=== PATIENT | male | born 1995 | race Caucasian/White ===

== ENCOUNTER 2017-06-17 13:14 | Emergency (ER) | payer OTHER ==
--- NOTE | 2017-06-17 14:07 | RAD ---
INDICATION: Right knee injury. TECHNIQUE: 4 views of the right knee were obtained. The exam is limited, the patient was unable to be positioned for the standard images. FINDINGS: The bones are in normal alignment. No joint effusion or fracture is seen. Joint spaces appear maintained. IMPRESSION: SLIGHTLY LIMITED EXAM, NO EVIDENCE FOR FRACTURE. IF THE PATIENT'S SYMPTOMS PERSIST, RECOMMEND FOLLOW-UP IMAGING.
[2017-06-17] MEDS ORDERED: Ibuprofen TAB* 600 MG PO ONE (14:25)
[2017-06-17] MEDS ORDERED: HYDROcodone/ACETAMIN 5-325 MG* 1 TAB PO ONE (14:52)
[2017-06-17 15:26] VITALS: BP 126/71
--- NOTE | 2017-06-20 13:32 | ED ---
Elyse Lopez Edward, scribed for Rick Desai MD on 06/17/17 at 1327 . Lower Extremity - HPI Summary HPI Summary: 21 y/o male presents to the ED c/o sudden onset R knee pain s/p knee injury earlier today. The pt was playing [employer] when he jumped up and landed in a ditch. The pt states his R knee popped and then felt immediate pain. The pain is aggravated with ambulation. Denies other symptoms. - History of Current Complaint Chief Complaint: EDExtremityLower Stated Complaint: RT KNEE PAIN Time Seen by Provider: 06/17/17 13:24 Hx Obtained From: Patient Mechanism Of Injury: Other - jumped and fell in a ditch Onset of Pain: Immediate Onset/Duration: Still Present Location: Is Discrete @ - R knee Associated Signs And Symptoms: Positive: Knee Pain - Allergies/Home Medications Allergies/Adverse Reactions: Allergies Allergy/AdvReac Type Severity Reaction Status Date / Time No Known Allergies Allergy Verified 06/17/17 13:22 PMH/Surg Hx/FS Hx/Imm Hx Previously Healthy: Yes Endocrine/Hematology History: Denies: Hx Diabetes Cardiovascular History: Denies: Hx Myocardial Infarction - Surgical History Surgery Procedure, Year, and Place: N/A Infectious Disease History: No Infectious Disease History: Denies: Traveled Outside the [place] in Last 30 Days - Family History Known Family History: Positive: Hypertension - Social History Occupation: Student Lives: Dormitory/Roommates Alcohol Use: None Hx Substance Use: No Substance Use Type: Reports: None Hx Tobacco Use: No Smoking Status (MU): Never Smoked Tobacco Review of Systems Constitutional: Negative Eyes: Negative ENT: Negative Cardiovascular: Negative Respiratory: Negative Gastrointestinal: Negative Genitourinary: Negative Positive: Arthralgia - R knee pain Skin: Negative Neurological: Negative Psychological: Normal All Other Systems Reviewed And Are Negative: Yes Physical Exam - Summary Physical Exam Summary: VITAL SIGNS: Reviewed. GENERAL: Patient is a well-developed and nourished male who is lying comfortable in the stretcher. Patient is not in any acute respiratory distress. HEAD AND FACE: No signs of trauma. No ecchymosis, hematomas or skull depressions. No sinus tenderness. EYES: PERRLA, EOMI x 2, No injected conjunctiva, no nystagmus. EARS: Hearing grossly intact. Ear canals and tympanic membranes are within normal limits. MOUTH: Oropharynx within normal limits. NECK: Supple, trachea is midline, no adenopathy, no JVD, no carotid bruit, no c- spine tenderness, neck with full ROM. CHEST: Symmetric, no tenderness at palpation LUNGS: Clear to auscultation bilaterally. No wheezing or crackles. CVS: Regular rate and rhythm, S1 and S2 present, no murmurs or gallops appreciated. ABDOMEN: Soft, non-tender. No signs of distention. No rebound no guarding, and no masses palpated. Bowel sounds are normal. EXTREMITIES: Positive tenderness @ medial aspect of knee around R medial meniscus area and medial ligament. No swelling, no deformity. Positive tenderness with decreased ROM. NEURO: Alert and oriented x 3. No acute neurological deficits. Speech is normal and follows commands. SKIN: Dry and warm Triage Information Reviewed: Yes Vital Signs On Initial Exam: Initial Vitals Temp Pulse Resp BP Pulse Ox 99.4 F 76 20 145/71 100 06/17/17 13:19 06/17/17 13:19 06/17/17 13:19 06/17/17 13:19 06/17/17 13:19 Vital Signs Reviewed: Yes Diagnostics - Vital Signs Vital Signs Temp Pulse Resp BP Pulse Ox 06/17/17 13:19 99.4 F 76 20 145/71 100 - Laboratory Lab Statement: Any lab studies that have been ordered have been reviewed, and results considered in the medical decision making process. - Radiology KNEE XR Xray Interpretation: No Acute Changes - SLIGHTLY LIMITED EXAM, NO EVIDENCE FOR FRACTURE. IF THE PATIENT'S SYMPTOMS PERSIST, RECOMMEND FOLLOW-UP IMAGING. Radiology Interpretation Completed By: Radiologist Lower Extremity Course/Dx - Course Assessment/Plan: 21 y/o male presents to the ED c/o sudden onset R knee pain s/ p knee injury earlier today. The pt was playing [employer] when he jumped up and landed in a ditch. The pt states his R knee popped and then felt immediate pain. The pain is aggravated with ambulation. Denies other symptoms. KNEE XR SHOWS SLIGHTLY LIMITED EXAM, NO EVIDENCE FOR FRACTURE. IF THE PATIENT'S SYMPTOMS PERSIST, RECOMMEND FOLLOW-UP IMAGING. XR of knee was negative for acute fracturedislocation. The pt was given IV fluids and norco for pain. Pt was placed in a knee immobilizer and given crutches. Pt will be d/c home with f/ u with orthopedics. The pt is hemodynamically stable, A&Ox3. - Diagnoses Provider Diagnoses: Right knee pain, Rule out meniscal tear Discharge - Discharge Plan Condition: Stable Disposition: HOME Prescriptions: Naproxen TAB* [Naprosyn 250 mg TAB*] 500 mg PO Q8H PRN #20 tab PRN Reason: Pain Patient Education Materials: Knee Pain (ED) Referrals: [facility] [place] [facility] REFERRAL [Outside] - 3 Days (PLEASE F/U IN 2-3 DAYS) Santy Szymanski MD [Medical Doctor] - 3 Days (PLEASE F/U IN 2-3 DAYS) The documentation as recorded by the Elyse patricia Edward accurately reflects the service I personally performed and the decisions made by Lloyd schwab Walter, MD.
== END 2017-06-17 15:24 | disposition home or self-care (01) ==
LOC: ED 13:14
DX: M25.561 Pain in right knee (principal)
CPT/HCPCS: 99282; A9270-GY